=== PATIENT | male | born 1935 | race Hispanic/Latino ===

== ENCOUNTER 2021-11-09 14:56 | Observation (INO) | payer OTHER ==
[~2021-11-09] VITALS: Ht 154.9 cm; Wt 68.0 kg
[2021-11-09 15:22] LABS: BASOPHILS % (AUTO) 0.8 % (0.0-5.0); EOSINOPHILS % (AUTO) 6.1 % (0.0-8.0); HEMATOCRIT 38.9 % (42-54); LYMPHOCYTES % (AUTO) 17.4 % (21.0-51.0); MEAN CORPUSCULAR HEMOGLOBIN 32.4 pg (27.0-33.0); MEAN CORPUSCULAR HGB CONC 32.4 g/dL (32.0-36.0); MONOCYTES % (AUTO) 8.3 % (3.0-13.0); NEUTROPHILS % (AUTO) 66.9 % (40.0-77.0); PLATELET COUNT (AUTO) 191 K/uL (130-400); RED BLOOD CELL COUNT(AUTO) 3.89 MIL/uL (4.50-6.20); RED CELL DISTRIBUTION WIDTH 15.3 % (11.0-15.5); WHITE BLOOD COUNT (AUTO) 10.5 K/uL (4.8-10.8)
[2021-11-09 15:30] LABS: CREATININE 2.1 mg/dL (0.5-1.5); POTASSIUM 3.9 mmol/L (3.5-5.1)
[2021-11-09 15:36] LABS: ALBUMIN 3.4 g/dL (3.5-5.0); BILIRUBIN,TOTAL 0.6 mg/dL (0.2-1.0); DIGOXIN 0.54 ng/mL (0.50-2.00); TOTAL PROTEIN, SERUM 7.1 g/dL (6.0-8.3)
[2021-11-09] MEDS ORDERED: 0.9%NACL 1000ML 1,000 ML IV ONE (16:00)
[2021-11-09] MEDS ORDERED: DOCUSATE SODIUM 100 MG CAP PO PRN (17:30)
[2021-11-09] MEDS ORDERED: ACETAMINOPHEN 650 MG SUPPOSITORY RC PRN (17:30)
[2021-11-09] MEDS ORDERED: ACETAMINOPHEN 325 MG TAB PO PRN (17:30)
[2021-11-09] MEDS ORDERED: ONDANSETRON 4MG INJ IVP PRN (17:30)
[2021-11-09 17:50] LABS: APPEARANCE,URINE Clear (CLEAR); BILIRUBIN,URINE Negative (NEGATIVE); COLOR,URINE Yellow (YELLOW); GLUCOSE, URINE (UA) Negative (NEGATIVE); KETONES,URINE Negative (NEGATIVE); LEUKOCYTE ESTERASE ,URINE Negative (NEGATIVE); NITRATE,URINE Negative (NEGATIVE); OCCULT BLOOD,URINE Negative (NEGATIVE); PH,URINE 5.5 (5.0-8.0); PROTEIN,URINE Negative (NEGATIVE); UROBILINOGEN,URINE 0.2 mg/dL (0.2-1.0)
[2021-11-09] MEDS ORDERED: 0.9%NACL 1000ML 1,000 ML IV SCH (18:00)
[2021-11-09 21:00] VITALS: BP 120/70
[2021-11-09] MEDS ORDERED: CARV6.25 PO (23:17)
[2021-11-09] MEDS ORDERED: APIX2.5T PO (23:17)
[2021-11-09] MEDS ORDERED: TIZA-211 PO (23:17)
[2021-11-09] MEDS ORDERED: LISI2.5T13 PO (23:17)
[2021-11-09] MEDS ORDERED: ATOR20TA65 PO (23:19)
[2021-11-09] MEDS ORDERED: CILO100T PO (23:19)
[2021-11-09] MEDS ORDERED: FURO20TA4 PO (23:19)
[2021-11-09] MEDS ORDERED: CLOP75TA32 PO (23:23)
[2021-11-09] MEDS ORDERED: NITR0.4T50 SL (23:23)
[2021-11-09] MEDS ORDERED: DIGO125T71 PO (23:23)
[2021-11-09] MEDS ORDERED: MULT-1258 PO (23:25)
[2021-11-09 23:54] VITALS: BP 112/54
[2021-11-10] VITALS (9 sets, daily range): BP systolic 101–160; BP diastolic 47–78
[2021-11-10] MEDS ORDERED: NITROGLYCERIN 0.4 MG SL TAB SL PRN (04:00)
[2021-11-10] MEDS ORDERED: TIZANIDINE HCL 2 MG TABLET PO PRN (04:00)
[2021-11-10 04:41] LABS: BASOPHILS % (AUTO) 0.7 % (0.0-5.0); EOSINOPHILS % (AUTO) 5.9 % (0.0-8.0); HEMATOCRIT 36.7 % (42-54); LYMPHOCYTES % (AUTO) 19.1 % (21.0-51.0); MEAN CORPUSCULAR HEMOGLOBIN 31.9 pg (27.0-33.0); MEAN CORPUSCULAR HGB CONC 32.4 g/dL (32.0-36.0); MEAN CORPUSCULAR VOLUME 98.4 fL (79-99); MONOCYTES % (AUTO) 10.8 % (3.0-13.0); NEUTROPHILS % (AUTO) 63.2 % (40.0-77.0); PLATELET COUNT (AUTO) 192 K/uL (130-400); RED BLOOD CELL COUNT(AUTO) 3.73 MIL/uL (4.50-6.20); RED CELL DISTRIBUTION WIDTH 15.2 % (11.0-15.5); WHITE BLOOD COUNT (AUTO) 11.9 K/uL (4.8-10.8)
[2021-11-10 04:52] LABS: INR 1.1 (0.85-1.15); PROTHROMBIN TIME 11.9 SEC (9.6-11.6)
[2021-11-10 04:53] LABS: B-TYPE NATRIURETIC PEPTIDE 285 pg/mL (0-100)
[2021-11-10 05:09] LABS: CREATININE 1.8 mg/dL (0.5-1.5); POTASSIUM 3.8 mmol/L (3.5-5.1); THYROID STIMULATING HORMONE 4.21 uIU/mL (0.36-3.74)
[2021-11-10] MEDS ORDERED: DIGOXIN 125 MCG TABLET PO SCH (09:00)
[2021-11-10] MEDS ORDERED: CILOSTAZOL 100 MG TAB PO SCH (09:00)
[2021-11-10] MEDS ORDERED: FUROSEMIDE 20 MG TABLET PO SCH (09:00)
[2021-11-10] MEDS: APIXABAN 2.5 MG TABLET PO SCH ×2 (09:24→22:40)
[2021-11-10] MEDS: LISINOPRIL 2.5 MG TABLET PO SCH (09:24)
[2021-11-10] MEDS: MULTIVITAMIN WITH MINERALS TABLET PO SCH (09:24)
[2021-11-10] MEDS: PANTOPRAZOLE 40 MG TAB DR PO SCH (09:24)
[2021-11-10] MEDS: CLOPIDOGREL 75MG TAB PO SCH (09:28)
[2021-11-10] MEDS: CARVEDILOL 6.25 MG TABLET PO SCH ×2 (09:28→22:40)
[2021-11-10] MEDS ORDERED: ATORVASTATIN 20 MG TABLET PO SCH (21:00)
[2021-11-11] VITALS: BP 141/84
[2021-11-11 04:00] VITALS: BP 145/84
[2021-11-11 05:27] LABS: HEMATOCRIT 37.1 % (42-54); MEAN CORPUSCULAR HEMOGLOBIN 32.5 pg (27.0-33.0); MEAN CORPUSCULAR HGB CONC 33.2 g/dL (32.0-36.0); MEAN CORPUSCULAR VOLUME 98.1 fL (79-99); RED BLOOD CELL COUNT(AUTO) 3.78 MIL/uL (4.50-6.20); RED CELL DISTRIBUTION WIDTH 15.2 % (11.0-15.5); WHITE BLOOD COUNT (AUTO) 11.4 K/uL (4.8-10.8)
[2021-11-11 05:58] LABS: ALBUMIN 3.1 g/dL (3.5-5.0); BILIRUBIN,TOTAL 0.6 mg/dL (0.2-1.0); CREATININE 1.8 mg/dL (0.5-1.5); MAGNESIUM 2.2 mg/dL (1.80-2.40); POTASSIUM 3.6 mmol/L (3.5-5.1); TOTAL PROTEIN, SERUM 6.5 g/dL (6.0-8.3)
[2021-11-11] MEDS: MULTIVITAMIN WITH MINERALS TABLET PO SCH (09:06)
[2021-11-11] MEDS: PANTOPRAZOLE 40 MG TAB DR PO SCH (09:07)
[2021-11-11] MEDS: LISINOPRIL 2.5 MG TABLET PO SCH (09:07)
[2021-11-11] MEDS: CARVEDILOL 6.25 MG TABLET PO SCH (09:08)
[2021-11-11] MEDS: APIXABAN 2.5 MG TABLET PO SCH (09:08)
[2021-11-11] MEDS: CLOPIDOGREL 75MG TAB PO SCH (09:09)
[2021-11-11 09:25] VITALS: BP 131/67
[2021-11-11 11:14] VITALS: BP 107/58
[2021-11-11 16:44] VITALS: BP 138/68
[2021-11-11 20:00] VITALS: BP 120/70
== END 2021-11-11 20:30 | disposition home or self-care (01) ==
LOC: EDH 14:56 → EDHIP 17:30 → 3AH 20:31
PROVIDERS: ADMIT Internal Medicine Critical Care Medicine; ATTEND Internal Medicine Critical Care Medicine
DX: R55 Syncope and collapse (principal); E87.1 Hypo-osmolality and hyponatremia; N17.9 Acute kidney failure, unspecified; I13.0 Hypertensive heart and chronic kidney disease with heart failure and stage 1 through stage 4 chronic kidney disease, or unspecified chronic kidney disease; I50.22 Chronic systolic (congestive) heart failure; N18.32 Chronic kidney disease, stage 3b; E11.22 Type 2 diabetes mellitus with diabetic chronic kidney disease; R79.1 Abnormal coagulation profile; D64.9 Anemia, unspecified; I25.10 Atherosclerotic heart disease of native coronary artery without angina pectoris; E78.5 Hyperlipidemia, unspecified; J84.10 Pulmonary fibrosis, unspecified; I25.2 Old myocardial infarction; E78.00 Pure hypercholesterolemia, unspecified; I25.5 Ischemic cardiomyopathy; I35.8 Other nonrheumatic aortic valve disorders; I47.2 Ventricular tachycardia; I48.21 Permanent atrial fibrillation; I70.202 Unspecified atherosclerosis of native arteries of extremities, left leg; I48.20 Chronic atrial fibrillation, unspecified; Z79.01 Long term (current) use of anticoagulants; Z79.02 Long term (current) use of antithrombotics/antiplatelets; Z79.899 Other long term (current) drug therapy; Z86.73 Personal history of transient ischemic attack (TIA), and cerebral infarction without residual deficits; Z91.19 Patient's noncompliance with other medical treatment and regimen; Z95.1 Presence of aortocoronary bypass graft; Z95.810 Presence of automatic (implantable) cardiac defibrillator
CPT/HCPCS: 36415 ×3; 70450; 71045; 80048; 80053 ×2; 80061; 80162; 81003; 83605; 83735; 83880; 84443; 84484 ×2; 85025 ×2; 85027; 85610; 85730; 87040 ×2; 93005 ×2; 93306; 93356; 93880; 96360; 96361 ×2; 99285; G0378 ×49